=== PATIENT | male | born 1990 | race Caucasian/White ===

== ENCOUNTER 2020-02-26 20:19 | Emergency (ER) | payer MEDICAID ==
[~2020-02-26] VITALS: Ht 149.9 cm; Wt 45.4 kg
[2020-02-26 21:16] VITALS: Ht 149.9 cm; Wt 45.4 kg
[2020-02-26 22:26] LABS: UA SPECIFIC GRAVITY <=1.005 (1.005-1.035); microscopic required? YES; urine erythrocyte TRACE (NEGATIVE)
[2020-02-26 23:29] VITALS: BP 133/71
== END 2020-02-26 23:29 | disposition home or self-care (01) ==
LOC: ED 20:19
PROVIDERS: Emergency Medicine
DX: B34.9 Viral infection, unspecified (principal); I10 Essential (primary) hypertension; Z88.0 Allergy status to penicillin; Z91.040 Latex allergy status
CPT/HCPCS: Q0092

== ENCOUNTER 2020-05-17 11:59 | Emergency (ER) | payer MEDICAID ==
[~2020-05-17] VITALS: Ht 160 cm; Wt 35.4 kg
[2020-05-17 12:11] VITALS: BP 151/107; Ht 160 cm; Wt 35.4 kg
[2020-05-17 13:37] LABS: microscopic required? YES; urine erythrocyte TRACE (NEGATIVE)
== END 2020-05-17 13:36 | disposition home or self-care (01) ==
LOC: ED 11:59
PROVIDERS: Emergency Medicine
DX: B34.9 Viral infection, unspecified (principal); I10 Essential (primary) hypertension; Z98.890 Other specified postprocedural states; Z88.0 Allergy status to penicillin; Z91.040 Latex allergy status

== ENCOUNTER 2020-07-07 23:40 | Emergency (ER) | payer MEDICAID ==
[~2020-07-07] VITALS: Ht 129.5 cm; Wt 35.4 kg
[2020-07-07 23:58] VITALS: Ht 129.5 cm; Wt 35.4 kg
[2020-07-08 02:55] LABS: PLATELET COUNT 297 x10^3mcL (130-400); RED CELL DISTRIBUTION WIDTH 13.1 % (11.5-14.5)
[2020-07-08 03:07] LABS: BAND NEUTROPHIL 1 % (0-10); MONOCYTE 10 % (0-7); SEGMENTED NEUTROPHILS 71 % (37-75); rbc morphology (normal/abnorm) NORMAL (NORMAL)
[2020-07-08 03:20] LABS: CALCIUM 9.5 mg/dL (8.5-10.1); CARBON DIOXIDE 25.6 mmol/L (21-32); CHLORIDE SERUM 105 mmol/L (98-107); GFR1 > 60 mL/min; GLUCOSE SERUM 92 mg/dL (74-106); POTASSIUM SERUM 3.7 mmol/L (3.5-5.1); SODIUM SERUM 139 mmol/L (136-145)
[2020-07-08 03:24] LABS: ALBUMIN 3.9 g/dL (3.4-5.0); ALKALINE PHOSPHATASE 192 U/L (46-116); ALT/SGPT 42 U/L (16-63); AST/SGOT 20 U/L (15-37); BILIRUBIN TOTAL 0.42 mg/dL (0.20-1.00)
[2020-07-08 03:28] LABS: TOTAL PROTEIN, SERUM 8.3 g/dL (6.4-8.2)
[2020-07-08 04:55] LABS: microscopic required? NO
[2020-07-08 05:05] LABS: UA SPECIFIC GRAVITY 1.015 (1.005-1.035); urine erythrocyte NEGATIVE (NEGATIVE)
[2020-07-08 07:02] VITALS: BP 106/73
== END 2020-07-08 07:02 | disposition home or self-care (01) ==
LOC: ED 23:40
PROVIDERS: Emergency Medicine
DX: R10.9 Unspecified abdominal pain (principal); R50.9 Fever, unspecified; R05 Cough; I10 Essential (primary) hypertension; Z98.890 Other specified postprocedural states; Z88.1 Allergy status to other antibiotic agents; Z88.0 Allergy status to penicillin; Z91.040 Latex allergy status

== ENCOUNTER 2020-08-21 13:15 | Emergency (ER) | payer MEDICAID ==
[~2020-08-21] VITALS: Ht 129.5 cm; Wt 31.8 kg
[2020-08-21 13:26] VITALS: BP 112/70; Ht 129.5 cm; Wt 31.8 kg
== END 2020-08-21 15:00 | disposition home or self-care (01) ==
LOC: ED 13:15
DX: J32.9 Chronic sinusitis, unspecified (principal); I10 Essential (primary) hypertension; Z98.890 Other specified postprocedural states; Z88.0 Allergy status to penicillin; Z88.1 Allergy status to other antibiotic agents; Z91.040 Latex allergy status